=== PATIENT | female | born 1975 | race Caucasian/White ===

== ENCOUNTER 2024-11-08 21:29 | Emergency (ER) | payer OTHER, SELFPAY ==
--- NOTE | ~2024-11-08 | CT_ITS ---
CT HEAD NON-CONTRAST Clinical History: confusion Comparison: None Technique: Unenhanced axial images skull base to vertex Coronal, sagittal reformats CT images acquired with automatic exposure control for dose reduction DLP: 681 mGy-cm Findings: 3.5 cm parenchymal hemorrhage left basal ganglia. 2 cm parenchymal hemorrhage left parietal lobe. Diffuse subarachnoid blood left hemisphere. Trace subdural blood along the falx not excluded. Sulci, ventricles: Attenuation left lateral ventricle but no shift. No evidence acute territorial infarct. No mass effect, midline shift. Bony calvarium intact. Visualized paranasal sinuses: Clear. Mastoid air cells: Clear. IMPRESSION: 1. Intracranial hemorrhages per above. Hemorrhagic masses not excluded. 2. Recommend MRI. Reviewed, dictated and finalized at location R.
--- NOTE | ~2024-11-08 | XR_ITS ---
Examination: XR chest 1V portable Clinical History: Weakness Comparison: None Technique: Portable AP Findings: Heart size normal. Lungs clear. No acute bony abnormality. IMPRESSION: 1. No acute cardiopulmonary findings given portable technique. Reviewed, dictated and finalized at location R.
[2024-11-08 21:42] VITALS: BP 162/60; PULSE 76; RESP 20; TEMP 36.6; O2SAT 98
--- NOTE | 2024-11-08 22:03 | PC.NURSE ---
pt from stroke stop to ed room 1. stroke stop cancelled by edp lalitha. ct notified of cancellation.
--- NOTE | 2024-11-08 22:06 | ECG_ITS ---
Test Date: 2024-11-08 22:11:42 Measurements Intervals [place] Rate: 64 P: 43 SC: 212 QRS: 21 QRSD: 85 T: 31 QT: 433 QTc: 449 Interpretive Statements SINUS RHYTHM WITH FIRST DEGREE AV BLOCK ABNORMAL ECG No previous ECG available for comparison Electronically Signed On 11-10-2024 15:28:24 CDT by Myron Diallo M.D.
[2024-11-08 22:11] VITALS: BP 201/95; PULSE 67; RESP 21; O2SAT 100
[2024-11-08 22:16] LABS: Hematocrit 44.2 % (37.0-47.0); Hemoglobin 15.0 g/dL (12.0-15.0); Immature Granulocyte Percent A 0.5 % (0-0.5); Lymphocytes Absolute Auto 1.44 K/mm3 (0.9-3.2); Mean Corpuscular HGB Conc 33.9 g/dl (32-36); Mean Corpuscular Hemoglobin 33.1 pg (26-34); Mean Corpuscular Volume 97.6 fl (80-100); Nucleated Red Blood Cells Absolute Auto 0.000 K/mm3 (0.0-0.012); Nucleated Red Blood Cells Perc 0.0 % (0.0-0.2); Platelet Count Result 286 k/mm3 (150-375); Red Blood Count 4.53 M/mm3 (4.2-5.4); White Blood Count 17.5 K/mm3 (4.5-10.0)
[2024-11-08] MEDS: Please add drug allergy info to patient profile. 1 EACH XX (22:17)
[2024-11-08 22:26] VITALS: O2SAT 100
--- NOTE | 2024-11-08 22:31 | ED.NEUROSD ---
HPI - Neuro Symptoms/Deficit General Chief Complaint: Suspected CVA Stated Complaint: blood in urine, confused Time Seen by Provider: 11/08/24 22:06 History of Present Illness HPI Narrative: This is a 49-year-old female presenting to the ED for weakness. Patient spent all of yesterday with with nausea and vomiting. She also developed left lower quadrant abdominal pain. She has not had a bowel movement several days. She became progressively more weak today and while she was at work she became confused and was having trouble making sentences. Patient states she has a headache. Denies any falls or trauma. Patient forages mushrooms and was foraging last week in [place]. She believes she was eating black [employer] mushrooms. Related Data Allergies Allergy/AdvReac Type Severity Reaction Status Date / Time No Known Allergies Allergy Verified 11/08/24 22:10 Exam Narrative: APPEARANCE: Patient appears ill, patient is drowsy Head: atraumatic. EYES: EOMI, NOSE: Atraumatic NECK: Trachea midline RESPIRATORY: No increased rate of breathing clear to auscultation CARDIOVASCULAR: RRR, peripheral edema ABDOMINAL: Non-distended soft nontender MUSCULOSKELETAl: No obvious deformities NEURO: Alert. Cranial nerves 2-12 grossly intact. Sensation light touch, motor function cerebellar function intact for 4 extremities. SKIN:: Warm, dry. Normal color PSYCHIATRIC: Normal affect Course Vital Signs Vital signs: Vital Signs Temperature 97.8 F 11/08/24 21:42 Pulse Rate 76 11/08/24 21:42 Respiratory Rate 20 11/08/24 21:42 Blood Pressure 162/60 H 11/08/24 21:42 Pulse Oximetry 98 11/08/24 21:42 Oxygen Delivery Room Air 11/08/24 21:42 Temperature 97.8 F 11/08/24 21:42 Pulse Rate 67 11/08/24 22:11 Respiratory Rate 21 H 11/08/24 22:11 Blood Pressure 201/95 H 11/08/24 22:11 Pulse Oximetry 100 11/08/24 22:26 Oxygen Delivery Room Air 11/08/24 22:26 MDM - Neuro Symptoms/Deficit MDM Narrative Medical decision making narrative: -Course: 49-year-old female presenting 2 days of nausea vomiting, confusion and headache. Last known normal was 6:00 p.m.. [facility] of 0. CT brain showed 2 areas of intercerebral hemorrhage which could be hemorrhagic metastasis versus intraparenchymal hemorrhage. [facility] by Dr. Kent. Patient's family member was updated. She will be transferred to ED to ED for further treatment and evaluation. Patient received 20 mg IV labetalol for elevated blood pressures with a goal SBP less than 140. -DDX includes but is not limited to: Intraparenchymal hemorrhage, CVA , gastroenteritis/dehydration -Co-morbidities complicating care: Hypertension, high cholesterol, hypothyroid -Social determinants of health: Marriage counselor Lab Data 11/08/24 22:10 11/08/24 22:10 Labs: Lab Results 11/08/24 11/08/24 Range/Units 21:57 22:10 WBC 17.5 H (4.5-10.0) K/mm3 RBC 4.53 (4.2-5.4) M/mm3 Hgb 15.0 (12.0-15.0) g/dL Hct 44.2 (37.0-47.0) % MCV 97.6 (80-100) fl MCH 33.1 (26-34) pg MCHC 33.9 (32-36) g/dl RDW 12.7 (11.5-14.5) % Plt Count 286 (150-375) k/mm3 MPV 9.8 (7.4-10.4) fl Immature Gran % (Auto) 0.5 (0-0.5) % Neut % (Auto) 85.8 H (45.5-73.1) % Lymph % (Auto) 8.2 L (18.3-44.2) % [facility] % (Auto) 5.0 (2.6-8.5) % Eos % (Auto) 0.2 (0-4.4) % Baso % (Auto) 0.3 (0.2-1.2) % Lymph # (Auto) 1.44 (0.9-3.2) K/mm3 [facility] # (Auto) 0.9 H (0.1-0.6) K/mm3 Eos # (Auto) 0.0 (0-0.3) K/mm3 Baso # (Auto) 0.1 (0.0-0.1) K/mm3 Abs Immat Gran (auto) 0.08 H (0.00-0.031) K/mm3 Absolute Neuts (auto) 15.0 H (1.3-6.7) K/mm3 Absolute Nucleated RBC 0.000 (0.0-0.012) K/mm3 Nucleated RBC % 0.0 (0.0-0.2) % Sodium Pending Potassium Pending Chloride Pending Carbon Dioxide Pending Anion Gap Pending BUN Pending Creatinine Pending Estim Creat Clear Calc Pending Estimated GFR Pending Glucose Pending POC Capillary Glucose 133 H (65-105) mg/dl Lactic Acid Pending Calcium Pending Total Bilirubin Pending AST Pending ALT Pending Alkaline Phosphatase Pending Total Protein Pending Albumin Pending Influenza A (RT-PCR) Pending Influenza B (RT-PCR) Pending RSV (RT-PCR) Pending SARS-CoV-2 RNA (RT-PCR) Pending Critical Care Time Critical Care Time Critical Care Time: Yes Total Critical Care Time: 35 Discharge Plan Discharge Clinical Impression: Brain bleed Patient Disposition: Acute Care Hospital Condition: Stable Patient Language: Persian Follow-up/Referrals: UNKNOWN,DOCTOR [Primary Care Provider]
[2024-11-08 22:35] LABS: Alanine Aminotransferase 47 U/L (6-35); Albumin Level 4.6 g/dL (3.5-5.1); Alkaline Phosphatase 108 U/L (38-126); Anion Gap 10 mmol/L (4-12); Aspartate Amino Transferase 37 U/L (14-36); Bilirubin,Total 0.4 mg/dL (0.2-1.3); Blood Urea Nitrogen 26 mg/dL (7-17); Calcium 9.5 mg/dL (8.4-10.2); Carbon Dioxide 28 mmol/L (22-30); Chloride 99 mmol/L (98-107); Estimated CRCL calculation 52 ml/min; Estimated Glomerular Filt Rate 54; Glucose 140 mg/dL (65-110); Potassium 3.9 mmol/L (3.4-5.0); Sodium 137 mmol/L (137-145); Total Protein 7.7 g/dL (6.3-8.2)
[2024-11-08 22:37] LABS: Estimated CRCL calculation 51 ml/min; Estimated Glomerular Filt Rate 53
[2024-11-08] MEDS: SODIUM CHLORIDE 0.9% IV 2,000 ML 999 ML IV CONT (22:43)
[2024-11-08 23:05] VITALS: BP 168/92; PULSE 66; RESP 18; O2SAT 96
[2024-11-08 23:14] LABS: INR 1.0; Partial Thromboplastin Time 33.3 Seconds (22.3-36.8); Prothrombin Time 13.8 Seconds (11.1-14.7)
[2024-11-08 23:17] LABS: Influenza A QL RT-PCR Negative (Negative); Influenza B QL RT-PCR Negative (Negative); RSV RNA, RT-PCR Negative (Negative); SARS-CoV-2 RNA PCR Negative (Negative)
== END 2024-11-08 23:35 | disposition short-term general hospital (02) ==
PROVIDERS: Emergency Provider Emergency Medicine
DX: I61.9 Nontraumatic intracerebral hemorrhage, unspecified (principal); R53.1 Weakness; Z20.822 Contact with and (suspected) exposure to COVID-19; R94.31 Abnormal electrocardiogram [ECG] [EKG]
CPT/HCPCS: 36415; 70450; 71045; 80053; 82948; 83605; 85025; 85610; 85730; 87637; 93005; 96361; 96374; 99285; J7030